=== PATIENT | male | born 1990 | race Caucasian/White ===

== ENCOUNTER 2018-01-02 08:16 | Day surgery (SDC) | payer OTHER ==
[2018-01-02] VITALS (7 sets, daily range): BP systolic 107–129; BP diastolic 54–79; PULSE 49–68; TEMP 97.9
[~2018-01-02] VITALS: Ht 182.9 cm; Wt 94.7 kg
[2018-01-02] MEDS ORDERED: BASAGLAR K100 UNIT/1 SQ (09:06)
[2018-01-02] MEDS ORDERED: HUMALOG100 U/ML (09:09)
[2018-01-02] MEDS ORDERED: ASPIRIN E.C. 8181 MG PO (09:10)
[2018-01-02] MEDS ORDERED: COLACE 100100 MG/CAP PO (11:39)
[2018-01-02] MEDS ORDERED: ROXICODONE 55 MG/TAB PO (11:39)
[2018-01-02] MEDS ORDERED: MOTRIN 600600 MG/TAB PO (11:40)
== END 2018-01-02 14:13 | disposition home or self-care (01) ==
LOC: SDCO 08:16
DX: K42.9 Umbilical hernia without obstruction or gangrene (principal); E11.9 Type 2 diabetes mellitus without complications; Z79.82 Long term (current) use of aspirin; Z79.4 Long term (current) use of insulin; Z83.3 Family history of diabetes mellitus
CPT/HCPCS: C1781; J2250; J2405; J2704; J3010; J7030